=== PATIENT | female | born 1995 | race Caucasian/White ===

== ENCOUNTER 2017-03-23 05:44 | Day surgery (SDC) | payer BC ==
[~2017-03-23] VITALS: Ht 162.6 cm; Wt 64.0 kg
--- NOTE | ~2017-03-23 | S ---
[facility] [place] [address] SURGICAL PATH RPT PROCEDURE Name: JESSICA OBRIEN Room #: DEP [facility] Jj.Alden.#: [id number] Admission: 03/23/17 Date of : 89 Discharge: 03/23/17 Report #: [id number] Path Case #: [id number] PATHOLOGY REPORT COLLECTION DATE: 03/23/2017 RECEIVED DATE: 03/23/2017 SUBMITTING PHYS: Dr. Sierra Flood OTHER PHYS: Dr. Olga Freeman SPECIMEN(S) RECEIVED: A.Epidermal inclusion cyst Rt great toe * * * * * * * * * * * * FINAL DIAGNOSIS: A. Epidermal inclusion cyst right great toe, excision: - Compatible with onychocryptosis. PATHOLOGIST: Virginia Stearns M.D. REPORT ELECTRONICALLY SIGNED BY: Virginia Stearns M.D. DATE/TIME: 03/25/2017 15:56 * * * * * * * * * * * * GROSS PATHOLOGY: The specimen is received in formalin, labeled "Jessica Obrien epidermal inclusion cyst right great toe," and consists of a white to camacho firm fibrous tissue measuring 1.1 x 0.9 x 0.7 cm in greatest dimension. The entire outside of the specimen is inked, upon sectioning there is white to brown friable material and the tissue is entirely submitted in cassette A1. (EFREN; 03/24/2017) CLINICAL HISTORY: Onychocrytptosis right INITIAL CPT CODE(S): A; 75638 Professional services performed by [facility] at [facility] [address] [place] [address] Technical services performed by [facility] at [address] [place] [id number]. [facility] [address] [place] [address] SURGICAL PATH RPT PROCEDURE Name: JESSICA OBRIEN Room #: DEP NEYDA [place]#: [id number] Admission: 03/23/17 Date of : 89 Discharge: 03/23/17 Report #: [id number] Path Case #: [id number] [address] PHONE: [phone] DIRECTOR: Yury Lua M.D. * * * END OF REPORT * * *
[~2017-03-23 05:44] MED LIST: BIRTH CONTROL MED PO
[2017-03-23 09:30] VITALS: BP 121/88
[2017-03-23 09:38] LABS: HEMATOCRIT 41.2 % (37.0-47.0); MCH 30.2 pg (26.0-34.0); MCHC 34.1 g/dL (28.0-37.0); MCV 88.5 fL (80.0-100.0); RBC 4.65 mil/uL (4.20-5.00); RDW 12.7 % (10.5-14.5); WBC 8.5 thou/uL (4.0-11.0)
[2017-03-23 09:49] LABS: CREATININE 0.8 mg/dL (0.6-1.0); POTASSIUM 3.8 mmol/L (3.5-5.1)
== END 2017-03-23 12:12 | disposition home or self-care (01) ==
LOC: TBA 05:44 → OR 05:44 → TBA 05:46 → OR 09:54
PROVIDERS: Podiatrist Foot & Ankle Surgery
DX: L60.0 Ingrowing nail (principal); L03.031 Cellulitis of right toe; L72.0 Epidermal cyst; M79.674 Pain in right toe(s); F41.9 Anxiety disorder, unspecified; Z98.890 Other specified postprocedural states
CPT/HCPCS: 50010; 50101; 50386; 56527; 57091; 62110; 62850; 70005